=== PATIENT | female | born 1930 | race Caucasian/White ===

== ENCOUNTER 2018-01-08 03:36 | Inpatient (IN) | payer OTHER ==
[~2018-01-08] VITALS: Ht 152.4 cm; Wt 62.8 kg
[~2018-01-08 03:36] MED LIST: SYNTHROID88 MCG PO
[2018-01-08] MEDS ORDERED: MULTIVITAMINS1 EAC8 PO (11:13)
[2018-01-08] MEDS ORDERED: VITAMIN B-121000 MC3 PO (11:14)
[2018-01-08] MEDS ORDERED: VITAMIN C60 MG PO (11:14)
[2018-01-08] MEDS ORDERED: MAGNESIUM400 M1 PO (11:15)
[2018-01-08] MEDS ORDERED: VITAMIN D1000 UNIT PO (11:15)
[2018-01-08] MEDS ORDERED: FERRALET 90 TA1 EACH PO (11:16)
--- NOTE | 2018-01-08 11:59 | Operative Report ---
Operative/Inv Procedure Report Surgery Date: 01/08/18 Name of Procedure: Left total hip arthroplasty Pre-Operative Diagnosis: Left hip osteoarthritis Post-Operative Diagnosis: Same Estimated Blood Loss: 50ml to 100ml Surgeon/Filenet Developer: Ananth SAUNDERS,Jorgito Robles Anesthesia: general endotracheal tube Implants: Razia secure fit femoral stem size-7 with a 127 neck and Trident acetabulum sizE-54 36+0 metal femoral head Drains: None Specimens: Femoral head and acetabular reamings Microbiology: Urine Complications: None Condition: Stable Operative Indication: Patient is an 87-year-old woman with worsening left hip pain. She was found to have severe end-stage osteoarthritis of the hip on x-ray with an apparent LLD- short left. Due to ongoing symptoms and lack of improvement with conservative measures including medications activity modification, injection she wished to proceed with total hip arthroplasty. Risks benefits and expectations of the surgical procedure were discussed which included but were not limited to persistent hip pain, need for subsequent surgery, infection, DVT, injury to blood vessel or nerve, instability, leg length discrepancy and anesthesia risks Operative/Procedure Note Note: Patient was brought to the operating room and transferred to the operating table. Once under appropriate anesthesia the patient was placed into a right lateral decubitus position with left side up. All bony prominence is well- padded. The left lower extremity was prepped and draped in standard fashion preoperative IV antibiotics were given prophylactically. A standard lateral incision was made for anticipated superior approach to the hip. The incision was taken down sharply to the underlying fascia. The fascia was incised in line with the skin incision. It was internally rotated placing the external rotators on tension. The piriformis was identified and dissected off of the posterior capsule and exposing the gluteus minimus tendon. The interval between the gluteus minimus tendon and the superior capsule was identified and a retractor was placed there to protect the gluteus minimus. A central portion of the capsule was dissected and excess incised and reflected posteriorly. Superior and inferior portion of the capsule were excised. Hip was dislocated. Severe end-stage degenerative changes of the femoral head noted. Femoral neck cut was then made based on preoperative templating and intraoperative measurements. Severe end-stage degenerative changes of the acetabulum were also noted. I then exposed the acetabulum placing retractors anteriorly and soup inferiorly. Reaming started with a size 46 and advanced to a size 53 for anticipated insertion of a size 54 acetabular. A size 52 trial was used to confirm circumferential reaming. I was satisfied with this. I then impacted the definitive size 54 Trident acetabular component with the appropriate anteversion and abduction based on anatomy and preoperative x-rays as well as the Razia tower. I was satisfied with the fixation. I then placed a 3 screws in the safe zone. After irrigation the definitive polyethylene to accept a 36 mm femoral head was impacted in place and the locking mechanism was confirmed. I then worked on the femur. The hip was internally rotated 90 and flexed about 60. Retractors were placed. I used a box osteotome to lateralize my insertion site. Hand reamers up to a size 7. I then broached up to a size 7. Isael left the last broach in place and trialed off of this. I use a standard neck and 36 more meter femoral head. Hip was reduced. Hip was found to be stable with simultaneous extension and external rotation. No sign of anterior instability. Hip was then stressed in forward flexion to greater than 90 internal rotation and adduction. No sign of posterior instability. Insert rotation was then removed from the hip. Copious irrigation femoral canal followed. I then impacted the definitive size 7 with a 127 neck angle and position with the same anteversion as the previously removed broach. I placed a 36 mm +0 metal femoral head in place after drying the trunion. I reduced the hip and again the stability was confirmed. I was satisfied with the synagogue of the leg length to equal the right side. Copious irrigation of the hip followed. I repaired the central portion of the capsule as well as the piriformis. Every level of closure was followed by copious irrigation. The fascia was closed with interrupted #1 #1 Vicryl suture. Subcu tissue was closed in 2 layers with 2-0 Vicryl skin was closed with lary. Appropriate dressings were applied and patient was awakened and taken to recovery room in good condition. No intraoperative complications. Blood loss was 100cc. Discharge Disposition: PACU
--- NOTE | 2018-01-08 15:10 | RADIOLOGY REPORT ---
EXAMINATION: XR HIP, LEFT CLINICAL INFORMATION: Status post left total hip replacement. COMPARISON: None. TECHNIQUE: Portable AP view of the left hip. FINDINGS: The left total hip arthroplasty appears well-seated in near-anatomic alignment. There is air in the joint and soft tissues. There are lateral skin lary. IMPRESSION: Intact-appearing left total hip arthroplasty. Expected postoperative changes.
[2018-01-08 16:00] VITALS: BP 128/74
--- NOTE | 2018-01-08 17:56 | PN- Orthopedic ---
Subjective Subjective: 87 y/o female S/P left total hip replacement. Patient alert and oriented feels well. no CP or SOB, full sensory motor returned to lower extremties Objective Vital Signs and I&Os Vital Signs Date Time Temp Pulse Resp B/P B/P Pulse O2 O2 Flow FiO2 Mean Ox Delivery Rate 01/08 1730 Nasal 1.0L Cannula 01/08 1708 95 Nasal 1.0L Cannula Physical Exam: VSS afebrile chest -CTA symmetric heart - RRR without MRG abdomen -soft without distention nontender to palpation left hip -dressings CDI without dranage, calves soft bialterally Current Medications: Current Medications Sig/Jey Start time Last Medication Dose Route Stop Time Status Admin Acetaminophen 0 .STK-MED ONE 01/08 1113 DC PO Acetaminophen 0 .STK-MED ONE 01/08 1037 DC IV Acetaminophen 650 MG ONCE 01/08 0000 DC PO 01/08 2359 Celecoxib 400 MG ONCE 01/08 0000 DC PO 01/08 2359 Dexamethasone 0 .STK-MED ONE 01/08 1113 DC .ROUTE Dexamethasone 10 MG ONCE 01/08 0000 DC IV 01/08 2359 Dextrose/Lactated 1,000 ML Q13H 01/08 1645 AC 01/08 Ringer's IV 1647 Docusate Sodium 100 MG BID PRN 01/08 1400 AC PO Fentanyl Citrate 0 .STK-MED ONE 01/08 1037 DC .ROUTE Gabapentin 0 .STK-MED ONE 01/08 1113 DC PO Gabapentin 300 MG ONCE 01/08 0000 DC PO 01/08 2359 Hydromorphone HCl 0 .STK-MED ONE 01/08 1037 DC .ROUTE Levothyroxine Sodium 0.088 MG DAILY AC 01/09 0700 AC PO Midazolam HCl 0 .STK-MED ONE 01/08 1037 DC .ROUTE Morphine Sulfate 2 MG Q3P PRN 01/08 1645 AC IV Ondansetron HCl 4 MG Q6P PRN 01/08 1645 AC IV Oxycodone HCl 0 .STK-MED ONE 01/08 1113 DC PO Oxycodone HCl 10 MG ONCE 01/08 0000 DC PO 01/08 2359 Oxycodone/ 1 TAB Q4P PRN 01/08 1645 AC Acetaminophen PO Oxycodone/ 2 TAB Q4P PRN 01/08 1645 AC Acetaminophen PO Polyethylene Glycol 17 GM DAILY PRN 01/08 1400 AC PO Scopolamine HBr 0 .STK-MED ONE 01/08 1113 DC TOP Scopolamine HBr 1 PAT ONCE 01/08 0000 DC TOP 01/08 2359 Senna/Docusate Sodium 2 TAB AT BEDTIME NEED.. 01/08 1645 AC PO Vancomycin HCl 1,000 MG ONCE ONE 01/09 0000 AC Sodium Chloride 250 ML IV 01/09 0059 Vancomycin HCl 1,000 MG ONCE 01/08 0000 DC Sodium Chloride 250 ML IV 01/08 2359 Warfarin Sodium 5 MG COUMADIN 1700 ONE 01/08 1700 DC PO 01/08 1701 Assessment/Plan Assessment/Plan 87 y/o female postop left BERNIE feels well without complaints coumadin for DVT proph PT- WBAT advance diet Core Measures Venous Thromboembolism VTE Risk Factors Surgery No Mechanical VTE Prophylaxis d/t Other No VTE Pharm Prophylaxis d/t Other
[2018-01-08 18:30] VITALS: BP 137/100
[2018-01-08 20:30] VITALS: BP 135/73
[2018-01-08 22:23] LABS: PT 11.3 SEC (9.4-12.5); PTT 24 SEC (25-37)
[2018-01-09 02:34] VITALS: BP 112/84
[2018-01-09 06:30] VITALS: BP 119/57
--- NOTE | 2018-01-09 07:32 | PN- Orthopedic ---
See Addendum Subjective Subjective: POD#1 S/P LEFT BERNIE NO MAJOR ISSUES OVERNIGHT DENEIS CP, SOB, NO N+V STOOD UP TO BEDSIDE COMMODE LAST EVENING WIT ASSITANCE Objective Vital Signs and I&Os Vital Signs Date Time Temp Pulse Resp B/P B/P Pulse O2 O2 Flow FiO2 Mean Ox Delivery Rate 01/09 0630 98.0 84 17 119/57 96 01/09 0234 97.9 91 17 112/84 95 01/09 0000 97 Nasal 1.0L Cannula 01/08 2030 97.9 95 18 135/73 97 Nasal 1.0L Cannula 01/08 1830 98.0 93 18 137/100 95 Nasal 1.0L Cannula 01/08 1730 Nasal 1.0L Cannula 01/08 1708 95 Nasal 1.0L Cannula 01/08 1600 98.3 93 12 128/74 95 Nasal 1.0L Cannula Intake & Output 01/09 0800 01/09 0000 01/08 1600 01/08 0800 01/08 0000 01/07 1600 Intake Total 640 Output Total 800 Balance -160 Intake, IV 300 Intake, Oral 340 Number 0 Bowel Movements Output, Urine 800 Patient 138 lb Weight Weight Bed scale Measurement Method Physical Exam: CV: RRR LUNGS: CLEAR ABD: SOFT, +BS EXT: LEFT THIGH SOFT, DRSG DRY DISTAL CMS INTACT BILAT LE Assessment/Plan Assessment/Plan ORTHO STABLE PLAN F/U AM LABS D/C IVF TODAY IF TOLERATING PO OOB WITH PT WBAT LEFT LE, WITH POSTERIOR HIP PRECAUTIONS HOME D/C PLANNING CONT CURRENT MED REGIME TITRATE PAIN MEDS FOR COMFORT Core Measures Venous Thromboembolism VTE Risk Factors Age>40 No Mechanical VTE Prophylaxis d/t N/A MechProphylax Ordered No VTE Pharm Prophylaxis d/t NA PharmProphylax ordered
[2018-01-09 08:14] LABS: PT 11.2 SEC (9.4-12.5)
[2018-01-09 08:39] LABS: ABSOLUTE BASOPHIL COUNT 0 /CUMM (0.0-0.2); ABSOLUTE EOSINOPHIL COUNT 0 /CUMM (0.0-0.7); ABSOLUTE GRANULOCYTE CT 9.7 /CUMM (1.4-6.5); ABSOLUTE LYMPH COUNT 0.8 /CUMM (1.2-3.4); ABSOLUTE MONOCYTE COUNT 1.1 /CUMM (0.10-0.60); BASOPHIL % 0 % (0.0-2.0); EOSINOPHIL % 0 % (0-5); GRANULOCYTE % 83.9 % (42.2-75.2); HEMATOCRIT 34.5 % (37-47); MEAN CORPUSCULAR HGB 30.8 PG (27.0-31.0); MEAN CORPUSCULAR VOLUME 90.7 FL (81.0-99.0); MEAN PLATELET VOLUME 9.7 FL (7.4-10.4); PLATELET COUNT 221 /CUMM (130-400); RBC DISTRIBUTION WIDTH 13.7 % (11.5-14.5); RED BLOOD CELL CT 3.81 /CUMM (4.20-5.40); WHITE BLOOD CELL COUNT 11.6 /CUMM (4.8-10.8)
[2018-01-09 08:42] VITALS: BP 149/69
[2018-01-09 13:29] VITALS: BP 141/67
[2018-01-09 21:38] VITALS: BP 123/68
[2018-01-10 06:25] VITALS: BP 132/64
--- NOTE | 2018-01-10 07:34 | PN- Orthopedic ---
See Addendum Subjective Subjective: PT IN BED SLEEPING, UPON WAKING PT COMPLAINS OF SIGNIFICANT RIGHT HIP PAIN AND WEAKNESS. PT HAS BEEN WALKING WITH PT BUT SAYS ITS PAINFUL. VOIDING, +BM, NO CP/SOB NO FEVERS Objective Vital Signs and I&Os Vital Signs Date Time Temp Pulse Resp B/P B/P Pulse O2 O2 Flow FiO2 Mean Ox Delivery Rate 01/10 625 98.0 88 17 132/64 92 01/09 2138 98.2 86 17 123/68 94 Room Air 01/09 1329 97.8 86 20 141/67 95 Room Air 01/09 0842 97.6 80 18 149/69 98 Room Air Intake & Output 01/10 0801/10 0000 01/09 1600 01/09 0801/09 0000 01/08 1600 Intake Total 240 510 875 720 640 Output Total 300 300 550 400 800 Balance -60 210 325 320 -160 Intake, IV 10 75 600 300 Intake, Oral 240 500 800 120 340 Number 1 2 0 Bowel Movements Output, Urine 300 300 550 400 800 Patient 138 lb Weight Weight Bed scale Measurement Method Physical Exam: GEN-NAD RESP-CLEAR CARDIAC-RRR ABD-SOFT, NT EXT- LEFT HIP SOFT, SOME ECCHYMOSIS AROUND INCISION, GILBERTO IN PLACE, NO DRAIAGE, NO SIGNS OF INFECTION. CALVES ARE NONTENDER BILATERALLY. NO LEG SHORTENING OR ROTATION. DISTAL SENSORY AND MOTOR FUNCTION INTACT. 2+ DP PULSE Current Medications: Current Medications Sig/Jey Start time Last Medication Dose Route Stop Time Status Admin Acetaminophen 1,000 MG Q6H 01/10 07 UNVr N/A 1 UNIT IV 01/11 0144 Acetaminophen 650 MG Q6-PRN PRN 01/08 2315 DC 01/09 PO 0741 Dextrose/Lactated 1,000 ML Q13H 01/08 1645 DC 01/09 Ringer's IV 0632 Docusate Sodium 100 MG BID PRN 01/08 1400 AC PO Levothyroxine Sodium 0.088 MG DAILY AC 01/09 0700 AC 01/10 PO 0503 Morphine Sulfate 2 MG Q3P PRN 01/08 1645 AC IV Ondansetron HCl 4 MG Q6P PRN 01/08 1645 AC IV Oxycodone HCl 5 MG Q4H PRN 01/10 0730 UNVr PO Oxycodone HCl 10 MG Q4H PRN 01/10 0730 UNVr PO Oxycodone/ 1 TAB Q4P PRN 01/08 1645 DC Acetaminophen PO Oxycodone/ 2 TAB Q4P PRN 01/08 1645 DC 01/10 Acetaminophen PO 0223 Polyethylene Glycol 17 GM DAILY PRN 01/08 1400 AC PO Senna/Docusate Sodium 2 TAB AT BEDTIME NEED.. 01/08 1645 AC PO Warfarin Sodium 5 MG COUMADIN 1700 ONE 01/09 1700 DC 01/09 PO 01/09 1701 1610 Results Last 48 Hours of Labs: Laboratory Tests 01/10 01/09 01/08 0605 0605 2151 Chemistry Sodium (137 - 145 mmol/L) Pending 139 Potassium (3.5 - 5.1 mmol/L) Pending 4.1 Chloride (98 - 107 mmol/L) Pending 105 Carbon Dioxide (22 - 30 mmol/L) Pending 25 Anion Gap (5 - 16) Pending 9 BUN (7 - 17 mg/dL) Pending 15 Creatinine (0.5 - 1.0 mg/dL) Pending 0.6 Estimated GFR (>60 ml/min) > 60 BUN/Creatinine Ratio (7 - 25 %) Pending 25.0 Coagulation PT (9.4 - 12.5 SEC) Pending 11.2 11.3 INR (0.90 - 1.19) Pending 1.03 1.04 APTT (25 - 37 SEC) 24 L Hematology CBC w Diff Pending NO MAN DIFF REQ WBC (4.8 - 10.8 /CUMM) Pending 11.6 H RBC (4.20 - 5.40 /CUMM) Pending 3.81 L Hgb (12.0 - 16.0 G/DL) Pending 11.7 L Hct (37 - 47 %) Pending 34.5 L MCV (81.0 - 99.0 FL) Pending 90.7 MCH (27.0 - 31.0 PG) Pending 30.8 MCHC (33.0 - 37.0 G/DL) Pending 34.0 RDW (11.5 - 14.5 %) Pending 13.7 Plt Count (130 - 400 /CUMM) Pending 221 MPV (7.4 - 10.4 FL) Pending 9.7 Gran % (42.2 - 75.2 %) 83.9 H Lymphocytes % (20.5 - 51.1 %) 6.8 L Monocytes % (1.7 - 9.3 %) 9.3 Eosinophils % (0 - 5 %) 0 Basophils % (0.0 - 2.0 %) 0 Absolute Granulocytes (1.4 - 6.5 /CUMM) 9.7 H Absolute Lymphocytes (1.2 - 3.4 /CUMM) 0.8 L Absolute Monocytes (0.10 - 0.60 /CUMM) 1.1 H Absolute Eosinophils (0.0 - 0.7 /CUMM) 0 Absolute Basophils (0.0 - 0.2 /CUMM) 0 Assessment/Plan Assessment/Plan 87YO F SP L BERNIE POD2. STABLE BUT WITH COMPLAINT OF LEFT HIP PAIN. PAIN MANAGEMENT, WILL CHANGE PERCOCET TO OFIMEV AND OXYCODONE WITH MORPHINE FOR BREAKTHROUGH PAIN PT- WBAT WITH RW FU AM LABS- WILL TITRITE COUMADIN DOSE FOR GOAL INR 2-2.5 REG DIET REG HOME MEDS DC PLANNING- HHS VS REHAB POSSIBLY LATER TODAY IF PAIN IMPROVES OR TOMORROW WILL DISCUSS WITH DR KLEIN Core Measures Venous Thromboembolism VTE Risk Factors Age>40 No Mechanical VTE Prophylaxis d/t N/A MechProphylax Ordered No VTE Pharm Prophylaxis d/t NA PharmProphylax ordered
[2018-01-10 07:54] LABS: ABSOLUTE BASOPHIL COUNT 0 /CUMM (0.0-0.2); ABSOLUTE EOSINOPHIL COUNT 0.2 /CUMM (0.0-0.7); ABSOLUTE GRANULOCYTE CT 7.7 /CUMM (1.4-6.5); ABSOLUTE LYMPH COUNT 1.2 /CUMM (1.2-3.4); BASOPHIL % 0.4 % (0.0-2.0); EOSINOPHIL % 1.5 % (0-5); GRANULOCYTE % 76.1 % (42.2-75.2); HEMATOCRIT 33.8 % (37-47); MEAN CORPUSCULAR HGB 30.3 PG (27.0-31.0); MEAN CORPUSCULAR HGB CONC 33.4 G/DL (33.0-37.0); MEAN CORPUSCULAR VOLUME 90.7 FL (81.0-99.0); MEAN PLATELET VOLUME 10.1 FL (7.4-10.4); PLATELET COUNT 199 /CUMM (130-400); RBC DISTRIBUTION WIDTH 13.9 % (11.5-14.5); RED BLOOD CELL CT 3.73 /CUMM (4.20-5.40); WHITE BLOOD CELL COUNT 10.2 /CUMM (4.8-10.8)
[2018-01-10 08:38] LABS: PT 17.9 SEC (9.4-12.5)
[2018-01-10 14:12] VITALS: BP 122/72
[2018-01-10 22:48] VITALS: BP 129/70
[2018-01-11 06:30] VITALS: BP 149/71
[2018-01-11 08:18] LABS: PT 21.8 SEC (9.4-12.5)
[2018-01-11] MEDS ORDERED: NORCO 5-325 TA1 EACH PO (08:46)
[2018-01-11] MEDS ORDERED: COLACE100 M1 PO (08:46)
[2018-01-11] MEDS ORDERED: MIRALAX17 G1 PO (08:46)
[2018-01-11] MEDS ORDERED: COUMADIN2.5 M1 PO (08:46)
--- NOTE | 2018-01-11 08:58 | Patient Discharge Instructions ---
Discharge Instructions General Discharge Information You were seen/treated for: Left hip pain related to unilateral primary osteoarthritis You had these procedures: Left total hip replacement Watch for these problems: Increasing pain despite the use of pain medication Increasing redness, warmth near incision Drainage of any type from incision Fever or flu like illness Do not soak the wound: Yes No bath, but you may shower: Yes Other wound care: Keep wound clean and dry No ointments of any type on or near incision. No exceptions. Do not soak wound in a bath, pool, hot tub or any body of water for a minimum of 6 weeks Special Instructions: Coumadin: You are taking this medication to help you to avoid developing a blood clot. The dose of this medication may change daily. It is based on labwork we call INR. Your INR will be checked at a minimum 2 times per week. Initially this will be cooridinated with your home care agency. The results will be given to Dr. Wadsworth and his office will provide you with information regarding your daily dose of coumadin. The most important thing to remember when taking this medication is to be sure to obtain instructions regarding your specific doses so that you do not miss a dose. It is helpful to take this medication at the same time each day, often times people take it at dinner time. We gave it to you around 5 pm each evening while you were in the hospital. Other Instructions: Posterior hip precautions in place for minimum 3 months: Avoid bending greater than 90 degrees at the waist Avoid crossing left leg over right leg Abduction pillow between legs when sleeping Diet Continue normal diet: Yes Recommended Diet: Regular Activity Full Activity/No Limits: No Activity Self Limited: Yes Pounds, do NOT lift more than: 10 Acute Coronary Syndrome Inclusion Criteria At DC or during hospital stay patient has or had the following: ACS DIAGNOSIS No Discharge Core Measures Meds if any: Prescribed or Continued at Discharge Meds if any: NOT Prescribed or Continued at Discharge Congestive Heart Failure Inclusion Criteria At DC or during hospital stay patient has or had the following: CHF DIAGNOSIS No Discharge Core Measures Meds if any: Prescribed or Continued at Discharge Meds if any: NOT Prescribed or Continued at Discharge Cerebrovascular accident Inclusion Criteria At DC or during hospital stay patient has or had the following: CVA/TIA Diagnosis No Discharge Core Measures Meds if any: Prescribed or Continued at Discharge Meds if any: NOT Prescribed or Continued at Discharge Venous thromboembolism Inclusion Criteria VTE Diagnosis No VTE Type NONE VTE Confirmed by (Test) NONE Discharge Core Measures - Per Current guidelines, there needs to be overlap - treatment for the first 5 days of Warfarin therapy. - If discharged on Warfarin prior to 5 days of - overlap therapy, the patient will need to be - assessed for post discharge needs including - *Post discharge parental anticoagulation - *Warfarin and/or parental anticoagulation education - *Follow up date to check INR post discharge At least 5 days overlap therapy as Inpatient No Meds if any: Prescribed or Continued at Discharge Note: Overlap Therapy is Warfarin and Anticoagulant Meds if any: NOT Prescribed or Continued at Discharge
--- NOTE | 2018-01-11 09:03 | Surgical Discharge Summary ---
Visit Information Visit Dates Admission Date: 01/08/18 Discharge Date: 01/11/2018 History of Present Illness Chief Complaint: Left hip pain related to unilateral primary osteoarthritis Medical History Blood Transfusion Hx: No Neurological: NONE EENT: cataracts Cardiovascular: AFIB Respiratory: NONE Gastrointestinal: NONE Hepatic: NONE Renal: KIDNEY STONES Musculoskeletal: osteoporosis, sciatica, spinal stenosis Psychiatric: NONE Endocrine: hyperthyroidism Blood Disorders: NONE Cancer(s): NONE POULTRY VACCINATOR/Reproductive: NONE History of MRSA: No History of VRE: No History of CDIFF: No Isolation History: Standard Influenza Vaccine: 12/20/17 Surgical History Pertinent Surgical History: colon resection, GALLBLADDER REMOVAL Psychosocial History Where Do You Live? Home Who Do You Live With? Daughter Services at Home: None What is Your Primary Language? Malian Review of Systems: See H&P Hospital Course Course Attending Physician: Ananth SAUNDERS,Travis Primary Care Physician: Dilip Guerra MD Hospital Course: Kathie was admitted to the hospital on 01/08/2018 for an elective and scheduled left total hip replacment. She tolerated the procedure well and was transferred to a general surgical floor. Her diet was advanced and tolerated. She voided spontaneously. She passed flatus. She was evaluated and treated by physical therapy. Throughout her hospital course and at the time of hospital discharge, her vital signs were stable and within normal limits, her neurovascular status was intact and her pain was controlled exclusively with the use of oral pain medications. She was deemed appropriate for discharge to home with home health services. Allergies: Coded Allergies: No Known Allergies (12/29/17) Disposition Summary Disposition Principal Diagnosis: Left hip unilateral primary osteoarthritis Additional Diagnosis: None Discharge Disposition: home health services Discharge Instructions General Discharge Information Code Status: Full Code Patient's Diet: Regular, advance as tolerated Patient's Activity: WBAT Follow-Up Instructions/Appts: Follow up with Dr. Wadsworth in 2 weeks from date of surgery. Please call office to arrange/confirm this appointment Medications at Discharge Discharge Medications: Continue taking these medications: Levothyroxine Sodium (Synthroid) 88 MCG TABLET 1 Tablet ORAL DAILY Multivitamin (Multivitamins) 1 EACH CAPSULE 1 ORAL DAILY Cyanocobalamin (Vitamin B-12) 1,000 MCG TABLET 1 Tablet ORAL DAILY Ascorbic Acid (Vitamin C) 60 MG LOZENGE 1 ORAL DAILY Comments: PT UNSURE OF DOSE Cholecalciferol (Vitamin D3) (Vitamin D) 1,000 UNIT TABLET 1 Tablet ORAL DAILY Comments: PT UNSURE OF DOSE Magnesium Oxide (Magnesium) 400 MG CAPSULE 1 Capsule ORAL DAILY Comments: PT UNSURE OF DOSE Iron Carb,Gl/FA/B12/C/Docusate (Ferralet 90 Tablet) 90 MG-1 MG-12 MCG-120 MG-50 MG TABLET 1 Tablet ORAL DAILY Comments: PT UNSURE OF DOSE Start taking the following new medications: Hydrocodone/Acetaminophen ([place] 5-325 Tablet) 5 MG-325 MG TABLET 1-2 Tablet ORAL EVERY 4-6 HOURS as needed for PAIN Qty = 36 No Refills Docusate Sodium (Colace) 100 MG CAPSULE 1 Capsule ORAL TWICE DAILY Qty = 14 No Refills Instructions: DISCONTINUE USE IF YOU DEVELOP LOOSE STOOL OR DIARRHEA Polyethylene Glycol 3350 (Miralax) 17 GRAM POWD.PACK 1 Packet ORAL DAILY Qty = 7 No Refills Instructions: dissolve in water, DISCONTINUE USE IF YOU DEVELOP LOOSE STOOL OR DIARRHEA Warfarin Sodium (Coumadin) 2.5 MG TABLET 1 Tablet ORAL DAILY Qty = 60 No Refills Instructions: DOSE SUBJECT TO CHANGE DAILY, PER INR, TARGET INR 2.0-2.5, OBTAIN DAILY DOSE INSTRUCTIONS PRIOR TO TAKING
--- NOTE | 2018-01-11 09:14 | PN- Orthopedic ---
Subjective Subjective: No acute overnight events reported. Patient notices some pain to operative leg but states that it responds to pain medication regimen. She denies chest pain, shortness of breath and difficulty breahting. She denies nause and vomitting. Has been tolerating diet, has been tolerating po intake. She has been voidng and passing flatus. She has been oob with PT and cleared for discharge to home today. Objective Vital Signs and I&Os Vital Signs Date Time Temp Pulse Resp B/P B/P Pulse O2 O2 Flow FiO2 Mean Ox Delivery Rate 01/11 08 Room Air 01/11 0630 98.2 86 20 149/71 93 01/10 2248 98.3 98 18 129/70 95 Room Air 01/10 1412 98.1 90 18 122/72 96 Room Air Intake & Output 01/11 1600 01/11 0800 01/11 0000 01/10 1600 01/10 0000 Intake Total 480 250 500 240 510 Output Total 850 400 750 500 300 Balance -370 -150 -250 -260 210 Intake, IV 0 10 100 10 Intake, Oral 480 240 400 240 500 Number 0 0 1 Bowel Movements Output, Urine 850 400 750 500 300 Physical Exam: General: Alert and oriented x3, no acute distress Cardiac: RRR, s1s2 Pulm: CTA bilaterally, non-labored respiratory effort Abdomen: N on-tender non-distended Extremities: moves all extremities, distal sensation grossly intact. Skin warm and well perfused. DP pulses palpable bilaterally. Bilateral calves soft and non-tender. Surgical site; Left hip. Dressing dry and intact. THigh compartment soft, no evidence of hematoma. No resting internal or external rotation to left leg. Assessment/Plan Assessment/Plan This is an 87 year old female, POD 3, s/p L THR. PMH hypothyroid. Doing well post operatively -Continue current pain regimen -Continue coumadin for dvt ppx, target INR 2.0-2.5, dose accordingly daily -OOB, WBAT, posterior hip precautions -Anticipate DC to home today with [facility] Will discuss plan of care with Dr. Wadsworth Core Measures Venous Thromboembolism VTE Risk Factors Age>40 No Mechanical VTE Prophylaxis d/t N/A MechProphylax Ordered No VTE Pharm Prophylaxis d/t NA PharmProphylax ordered
[2018-01-11 13:12] VITALS: BP 132/720
== END 2018-01-11 14:45 | disposition home health service (06) | DRG 470 ==
LOC: 2NB 03:36 → SDA 03:36 → ENRESERV 14:51 → ENTRNSPT 16:04 → EDTRNSPTSTS 16:09 → EDTRNSPT 16:09 → 2NB 16:18 → CMPTRNSPT 16:23 → ENTRNSPT 01-11 14:31 → 2NB 01-11 14:45 → CMPTRNSPT 01-11 14:47
PROVIDERS: Physician Assistant; Physician Assistant Surgical
PROC: 0SRB04A Replacement of Left Hip Joint with Ceramic on Polyethylene Synthetic Substitute, Uncemented, Open Approach (ICD-10-PCS; principal; 2018-01-08)
DX: M16.12 Unilateral primary osteoarthritis, left hip (principal); E03.9 Hypothyroidism, unspecified; I48.0 Paroxysmal atrial fibrillation; Z88.8 Allergy status to other drugs, medicaments and biological substances; Z90.49 Acquired absence of other specified parts of digestive tract
CPT/HCPCS: 36415; 36592; 73501; 82436; 97110-GO; 97116-GO; 97161-GP; 97165-GO; 97530-GO; C1713; J0131; J1100; J3370; J7040